=== PATIENT | male | born 1945 | race Caucasian/White ===

== ENCOUNTER 2016-08-04 08:49 | Inpatient (IN) | payer MEDICARE, OTHER ==
[2016-07-21 10:39] LABS: ASCORBIC ACID (UR NOT ORDER) NEG (NEG); BILIRUBIN, URINE NEGATIVE (NEG); KETONE, URINE NEGATIVE (NEG); LEUKOCYTE ESTERASE(NOT OR NEG (NEG); WBC (NOT ORDERED) (RFLEX) 1 (0-5)
[2016-07-21 10:56] LABS: BASOPHILS 0.5 %; BASOPHILS ABSOLUTE 0.03 10/3/uL (0.0-0.16); EOSINOPHILS 1.8 %; EOSINOPHILS ABSOLUTE 0.12 10/3/uL (0.0-0.53); HEMATOCRIT 43.7 % (40.0-51.0); HEMOGLOBIN 15.1 g/dL (13.6-17.8); IMMATURE GRANULOCYTES 0.9 %; IMMATURE GRANULOCYTES ABSOLUTE 0.06 10/3/uL (0.0-0.11); LYMPHOCYTES 34.5 %; LYMPHOCYTES ABSOLUTE 2.28 10/3/uL (0.67-4.30); MEAN CORPUS HGB CONC 34.6 g/dL (32.0-36.0); MEAN CORPUSCULAR HEMOGLOB 31.1 pg (26.0-34.0); MEAN CORPUSCULAR VOLUME 89.9 fL (80-100); MEAN PLATELET VOLUME 10.9 fL (9.2-13.0); MONOCYTES 8.2 %; MONOCYTES ABSOLUTE 0.54 10/3/uL (0.21-1.20); NEUTROPHILS 54.1 %; NEUTROPHILS ABSOLUTE 3.57 10/3/uL (2.02-8.40); PLATELET COUNT 201 10/3/uL (150-400); RBC DISTRIBUTION WIDTH 13.7 % (12.0-16.0); RED CELL COUNT 4.86 10/6/uL (4.7-6.1); WHITE BLOOD CELLS 6.6 10/3/uL (4.5-10.5)
[2016-07-21 10:59] LABS: MANUAL DIFF NO %
[2016-07-21 11:05] LABS: INTERNATIONAL NORMAL RATI 1.1 UNITS (-); PARTIAL THROMBO TIME 26.9 SEC (22.5-37.2); PROTIME (NOT ORD) 13.9 SEC (12.0-14.5)
[2016-07-21 11:13] LABS: A/G RATIO 1.4 (0.7-1.9); BUN (BLOOD UREA NITROGEN) 18 MG/DL (6-23); CALCIUM, SERUM 8.6 MG/DL (8.5-10.4); CHLORIDE, SERUM 108 MMOL/L (96-112); CO2 (CARBON DIOXIDE) 25 MMOL/L (24-34); CREATININE 0.72 MG/DL (0.70-1.30); GFR AFRICAN AMERICAN 111 ML/MIN (>=60); GFR NON AFRICAN AMERICAN 96 ML/MIN (>=60); GLOBULIN 2.9 G/DL (2.5-4.1); GLUCOSE, SERUM 102 MG/DL (60-99); POTASSIUM, SERUM 4.3 MMOL/L (3.5-5.3); SGOT(AST) 17 U/L (5-40); SGPT(ALT) 32 U/L (5-65); SODIUM, SERUM 140 MMOL/L (135-148); TOTAL BILIRUBIN 1.2 MG/DL (0-1.2); TOTAL PROTEIN 6.9 G/DL (6.0-8.5)
[2016-07-21 11:14] LABS: ALKALINE PHOSPHATASE 93 U/L (45-117)
--- NOTE | ~2016-08-04 | DS ---
Discharge Summary [facility] [address] [place]. [address] NAME: ZONIA TALAVERA : 49 STATUS : DIS IN PAT#: [id number] AGE: 70 ADM/REG DATE : 08/04/16 MR#: [id number] REPORT SERV DATE: 08/18/16 DICTATED BY: STU CASTILLO DATE: 08/17/16 REPORT STATUS : Draft TRANSCRIBED BY: MERLYN DATE: 08/17/16 Data Collection from hospitalization DISCHARGE DIAGNOSIS(ES): 1. Right knee arthritis. 2. Hypertension. 3. Hypercholesterolemia. CONSULTATIONS: None. PROCEDURES PERFORMED: Right total knee arthroplasty, 08/04/2016. PATHOLOGY: Joint, bone and tissue, right knee, end-stage degenerative joint disease with eburnation and repair. MEDICATIONS: CoQ10 at 200 mg daily, Debbie 90 mg at bedtime, Cozaar 50 mg every morning, multiple vitamin without minerals one daily, Zocor 20 mg at bedtime, Coumadin as directed, Ambien 10 mg at bedtime as needed, Afrin nasal spray two to three sprays each nostril every 12 hours as needed, and oxycodone 5 mg one to two tablets every four to six hours as needed. CONDITION AT DISCHARGE: Upon discharge, he did appear to be doing well and had no complaints. DISPOSITION: He was discharged home to continue a regular diet with activity as discussed. He was to follow up with [facility] for walk-in labs while on Coumadin beginning on 08/10/2016, follow up with [facility] in [place] for physical therapy beginning on 08/10/2016. He was also to follow up with al for an appointment at the [place] office on 08/19/2016. HOSPITAL COURSE: This 70-year-old male had been seen in the office with right knee pain. He stated that his pain had increased since he was seen last. He stated that his pain was now significantly affecting his ADLs. He stated that he was unable to walk where he would like to due to the pain in his knee. He also stated that he had significant trouble with stairs, taking them one at a time. He had previously tried cortisone injections, as well as Monovisc with only a short period of relief. As he had failed conservative treatment, he was now admitted for surgery and further treatment. Upon admission to the hospital, he had been taken to the operating room where he did undergo the above right total knee arthroplasty. He did tolerate this well and was transferred to the recovery room. On postop day #1, he did appear to be doing well. He had been evaluated by both Physical Therapy and Occupational Therapy. He was afebrile and his vital signs were stable. His INR was at 1.1. His hemoglobin was at 12.8. On postop day #2, he had remained in stable condition, and he did state that Dilaudid helped his pain but it made him too sleepy and that he was unable to participate with physical therapy while on Dilaudid. His medications were therefore adjusted. On postop day #3, he did continue to do well and did state that he was ready to go home. He had remained in stable condition and then was discharged with the above instructions. Information collected by: Kyle Avila Discharge Summary [address] [address] NAME: ZONIA TALAVERA : 49 STATUS : DIS IN PAT#: [id number] AGE: 70 ADM/REG DATE : 08/04/16 MR#: [id number] REPORT SERV DATE: 08/18/16 DICTATED BY: STU CASTILLO DATE: 08/17/16 REPORT STATUS : Draft TRANSCRIBED BY: MERLYN DATE: 08/17/16 I submit the above information as my discharge summary. CONNIE/MERLYN Stu Castillo M.D. / [id number] CC: Ying Rios M.D.
--- NOTE | ~2016-08-04 | OP ---
Record Of Operation [facility] [address] [place]. [address] NAME: ZONIA TALAVERA : 49 STATUS : ADM IN PAT#: [id number] AGE: 70 ADM/REG DATE : 08/04/16 MR#: [id number] REPORT SERV DATE: 08/04/16 DICTATED BY: STU CASTILLO DATE: 08/04/16 REPORT STATUS : Draft TRANSCRIBED BY: MODL DATE: 08/04/16 DATE OF PROCEDURE: 08/04/2016 PREOPERATIVE DIAGNOSIS: Right knee arthritis. POSTOPERATIVE DIAGNOSIS: Right knee arthritis. PROCEDURE PERFORMED: Right total knee arthroplasty. SURGEON: Stu Castillo M.D. MACHINE FORMER: Jose Francisco Alexander. ANESTHESIA: Spinal converted to general with adductor block and local infusion. PROCEDURE IN DETAIL: The patient is clearly identified and after obtaining informed consent is brought to the operating room at [facility] where anesthesia is induced uneventfully with excellent anesthetic effect. Subsequently, the affected extremity is prepped and draped in the usual manner and after an appropriate time-out procedure is performed, via an anterior approach, the skin is divided, fascial planes are elevated, paramedial approach to the knee is made. The structures themselves are elevated, excised, and debrided were appropriate, whereupon the patella is carefully everted, calipered, and planed and with the size and type being reproduced with the appropriate-size patella, trialing is performed successfully. At this point, the patella is then carefully subluxed laterally, the knee is flexed, osteophytes around the distal femur are removed, followed by the ACL being divided. The femoral canal is entered and vented, at which point with the intramedullary guide being utilized, the distal femoral cut is made. At this point, the tibia is carefully subluxed anteriorly. The surrounding soft tissues to the tibia are protected with Hohmann retractors, at which point the extramedullary guide is utilized to perform the proximal tibial cut and after cleansing these tissues, the spacer block is utilized in extension to confirm excellent extension, stability, and alignment. The guiding pins are then all carefully removed and the knee is then flexed. The femur is sized, whereupon the anterior, posterior, chamfer, and box cuts are made appropriately. The proximal tibia then is assessed. Osteophytes and surrounding soft tissues are removed and debrided were appropriate. Posterior osteophytes are removed as well. The menisci are excised and thus concluding trialings performed successfully. The proximal tibia then is carefully prepared utilizing proper cement technique. The permanent implants have been carefully placed into position uneventfully where upon copious irrigations performed, the permanent tibial implants applied and thus concluded. The joint was then copiously irrigated, at which point it is closed carefully in layers including Vicryl and luis for the skin, at which point Aquacel sterile dressing is applied. The patient is allowed to awaken and is transferred to the bed and subsequently to the recovery room in stable condition having tolerated the procedure well. ESTIMATED BLOOD LOSS: 50 mL. Record Of Operation [place] [id number] [facility] [place]. [address] NAME: ZONIA TALAVERA : 49 STATUS : ADM IN [facility]#: [id number] AGE: 70 ADM/REG DATE : 08/04/16 MR#: [id number] REPORT SERV DATE: 08/04/16 DICTATED BY: STU CASTILLO DATE: 08/04/16 REPORT STATUS : Draft TRANSCRIBED BY: MERLYN DATE: 08/04/16 FLUIDS: 1200 mL. TOURNIQUET TIME: 38 minutes. PATHOLOGY: Sent specimen. MICROBIOLOGY: None. COMPLICATIONS: None. SPONGE AND NEEDLE COUNTS: Reportedly correct. ANTIBIOTICS: Administered appropriately preoperatively and ordered to be discontinued within 23 hours. IMPLANTS: Attune knee by DePuy, femur 8, tibia 8, patella 41, polyethylene 11/02. KYLE/MERLYN Stu Castillo M.D. / [id number] CC: Stu Castillo M.D.
[~2016-08-04 08:49] MED LIST: AFRIN15 NAS; ALEVE220 MG PO; ALLEGRA180 PO; AMB10 PO; CO Q-10200 MG PO; COZ50 PO; MULTIPLE VIT PO; PHENDIMETRAZ35 MG PO; ZOCOR20 PO
[2016-08-05 05:26] LABS: BUN (BLOOD UREA NITROGEN) 17 MG/DL (6-23); CALCIUM, SERUM 8.5 MG/DL (8.5-10.4); CHLORIDE, SERUM 107 MMOL/L (96-112); CO2 (CARBON DIOXIDE) 26 MMOL/L (24-34); CREATININE 0.83 MG/DL (0.70-1.30); GFR AFRICAN AMERICAN 105 ML/MIN (>=60); GFR NON AFRICAN AMERICAN 90 ML/MIN (>=60); POTASSIUM, SERUM 4.7 MMOL/L (3.5-5.3); SODIUM, SERUM 140 MMOL/L (135-148)
[2016-08-05 05:29] LABS: INTERNATIONAL NORMAL RATI 1.1 UNITS (-); PROTIME (NOT ORD) 14.5 SEC (12.0-14.5)
[2016-08-05 05:39] LABS: GLUCOSE, SERUM 149 MG/DL (60-99)
[2016-08-05 05:44] LABS: HEMOGLOBIN 12.8 g/dL (13.6-17.8)
[2016-08-05 05:46] LABS: HEMATOCRIT 37.6 % (40.0-51.0)
[2016-08-06 04:56] LABS: HEMATOCRIT 35.8 % (40.0-51.0); HEMOGLOBIN 12.1 g/dL (13.6-17.8)
[2016-08-06 05:03] LABS: INTERNATIONAL NORMAL RATI 1.1 UNITS (-); PROTIME (NOT ORD) 14.5 SEC (12.0-14.5)
[2016-08-07 05:03] LABS: HEMATOCRIT 34.7 % (40.0-51.0); HEMOGLOBIN 11.6 g/dL (13.6-17.8)
[2016-08-07 05:09] LABS: INTERNATIONAL NORMAL RATI 1.3 UNITS (-); PROTIME (NOT ORD) 15.8 SEC (12.0-14.5)
[2016-08-07] MEDS ORDERED: C5 PO (12:44)
[2016-08-07] MEDS ORDERED: OXYCOD PO (12:45)
[2016-11-22] MEDS ORDERED: AMB10 PO (15:39)
[2016-11-22] MEDS ORDERED: ZOCOR20 PO (15:39)
[2016-11-22] MEDS ORDERED: COZ50 PO (15:39)
[2016-11-22] MEDS ORDERED: MOBIC15 MG PO (15:39)
[2016-11-22] MEDS ORDERED: HALF81 PO (15:39)
== END 2016-08-07 13:38 | disposition home or self-care (01) | DRG 470 ==
LOC: SDC/OF 08:49 → PACU 14:23 → 3JRC 17:11
PROVIDERS: Orthopaedic Surgery
PROC: 3E0T3CZ (ICD-10-PCS; 2016-08-04)
PROC: 0SRC0J9 Replacement of Right Knee Joint with Synthetic Substitute, Cemented, Open Approach (ICD-10-PCS; principal; 2016-08-04 11:00)
DX: M17.11 Unilateral primary osteoarthritis, right knee (principal); I10 Essential (primary) hypertension; E78.00 Pure hypercholesterolemia, unspecified; E78.5 Hyperlipidemia, unspecified; Z79.899 Other long term (current) drug therapy; Z88.5 Allergy status to narcotic agent; Z80.8 Family history of malignant neoplasm of other organs or systems; E66.9 Obesity, unspecified; Z68.31 Body mass index [BMI] 31.0-31.9, adult
CPT/HCPCS: 36415; 71020; 80048; 80053; 81001; 82962; 85014; 85018; 85025; 85610; 85730; 86850; 86900; 86901; 87641; 88305; 88311; 93005; 97110-GP; 97116-GP; 97150-GP; 97161-GP; 97165-GO; A9270-GY; C1776; J0330; J0690; J1885; J2250; J2274; J2370; J2405; J2795; J3010